=== PATIENT | female | born 1990 ===

== ENCOUNTER 2020-03-15 19:06 | Emergency (ER) | payer SELFPAY ==
[~2020-03-15] VITALS: Ht 157.4 cm; Wt 82.8 kg
[~2020-03-15 19:06] MED LIST: AMOX500C2 PO
--- OUTSIDE RECORDS SUMMARY | 2020-03-15 19:13 | XMS REPORT | Continuity of Care Document ---
Author Organization Unknown Address Unknown Phone Unavailable Allergies Active Description Code Type Severity Reaction Onset Reported/Identified Relationship to Patient Clinical Status Yes No Known Drug Allergies [id number] Drug Allergy Unknown N/A 05/09/2015 Medications There is no data. Problems Date Dx Coded Attending Type Code Diagnosis Diagnosed By 05/09/2015 MARY BETH DIXON DO Ot 784.0 Procedures There is no data. Results There is no data. Encounters ACCT No. Visit Date/Time Discharge Status Pt. Type Provider Facility Loc./Unit Complaint [id number] 01/23/2016 21:16:00 016 04:30:00 DIS Emergency ARI SÁNCHEZ, SHARAD Lewis [facility] [id number] 05/08/2015 21:23:00 015 02:10:00 DIS Emergency MARY BETH DIXON DO [facility]
[2020-03-15 19:27] LABS: BILIRUBIN,URINE NEGATIVE (NEGATIVE); CLARITY,URINE CLEAR; COLOR,URINE YELLOW; GLUCOSE, URINE (UA) NEGATIVE (NEGATIVE); KETONES,URINE NEGATIVE (NEGATIVE); LEUKOCYTE ESTERASE ,URINE NEGATIVE (NEGATIVE); NITRITE,URINE NEGATIVE (NEGATIVE); PROTEIN,URINE NEGATIVE (NEGATIVE)
[2020-03-15 19:38] LABS: BACTERIA,URINE TRACE /HPF; RBC,URINE 0-2 /HPF; WBC,URINE 0-2 /HPF
[2020-03-15] MEDS ORDERED: LACTATED RINGERS 1,000 ML IV ONE (19:40)
[2020-03-15] MEDS ORDERED: fentaNYL INJECTION 100 MCG/2 ML AMP IVP STA ×2 (19:40→20:46)
[2020-03-15] MEDS ORDERED: ONDANSETRON 4 MG/2 ML (SDV) Z0FRAN IVP ONE (19:45)
[2020-03-15 19:53] LABS: BASOPHILS % (AUTO) 0 % (0-10); EOSINOPHILS # (AUTO) 0.1 10^3/uL (0.0-0.3); EOSINOPHILS % (AUTO) 1 % (0-10); HEMATOCRIT 36 % (35-52); HEMOGLOBIN 12.2 G/DL (11.5-16.0); LYMPHOCYTES # (AUTO) 1.8 X 10^3 (1.0-4.0); LYMPHOCYTES % (AUTO) 24 % (12-44); MEAN CORPUSCULAR HEMOGLOBIN 30 PG (25-34); MEAN CORPUSCULAR HGB CONC 34 G/DL (32-36); MEAN CORPUSCULAR VOLUME 89 FL (80-99); MEAN PLATELET VOLUME 9.7 FL (7.4-10.4); MONOCYTES # (AUTO) 0.6 X 10^3 (0.0-1.0); MONOCYTES % (AUTO) 8 % (0-12); NEUTROPHILS % (AUTO) 67 % (42-75); PLATELET COUNT 355 10^3/uL (130-400); RED CELL DISTRIBUTION WIDTH 14.8 % (10.0-14.5); WHITE BLOOD COUNT 7.5 10^3/uL (4.3-11.0)
[2020-03-15 20:13] LABS: ALANINE AMINOTRANSFERASE 20 U/L (0-55); ALBUMIN 4.2 GM/DL (3.2-4.5); ALKALINE PHOSPHATASE 75 U/L (40-136); BILIRUBIN,TOTAL 0.2 MG/DL (0.1-1.0); BUN/CREATININE RATIO 16; CALCIUM 9.3 MG/DL (8.5-10.1); CARBON DIOXIDE 22 MMOL/L (21-32); CREATININE SERUM 0.68 MG/DL (0.60-1.30); GFR ESTIMATED > 60; GLUCOSE 99 MG/DL (70-105); TOTAL PROTEIN 7.7 GM/DL (6.4-8.2)
--- NOTE | 2020-03-15 20:20 | ED GU-Female ---
General Chief Complaint: TERMITE TREATER HELPER Stated Complaint: 4 WKS PREG - CRAMPING / BLEEDING Source: patient Exam Limitations: language barrier History of Present Illness Date Seen by Provider: Mar 15, 2020 Time Seen by Provider: 19:13 Initial Comments Here with report of vaginal bleeding and cramping especially on the left side. Patient states that she had short period on February 04 that lasted 2 days. Normally she goes for 4 days. Went to the clinic yesterday and had an evaluation due to left-sided abdominal pain and found that she was . Started having vaginal bleeding and cramping yesterday. Passed a few clots. States that she has cramping pain to the lower left side and then has vaginal bleeding. Worried about . Does state that she has some burning with urination but otherwise urinating okay. No problems with bowel movements. Denies fevers, chills, upper respiratory symptoms or shortness of breath. This would be her fourth and she has 3 live births. History of present illness and pelvic exam via court interpreter services. Timing/Duration: yesterday, getting worse Severity/Quality: moderate, cramping Location: LLQ Radiation: suprapubic Activities at Onset: none Sexual [place] History: less than 2 months ago Associated Symptoms: abdominal pain; No fever/chills, No lower back pain, No nausea/vomiting Allergies and Home Medications Allergies Coded Allergies: No Known Drug Allergies (Unverified , 05/09/15) Home Medications Amoxicillin 500 Mg Capsule, 500 MG PO TID Prescribed by: JOE BOWEN on 01/23/16 2331 Hydrocodone/Acetaminophen 1 Each Tablet, 1 TAB PO Q4-6HR PRN for pain Prescribed by: CHRISTINA PAREDES on 03/15/20 2216 Patient Home Medication List Home Medication List Reviewed: Yes Review of Systems Review of Systems Constitutional: see HPI; No chills, No fever EENTM: no symptoms reported Respiratory: no symptoms reported Cardiovascular: no symptoms reported Gastrointestinal: see HPI Genitourinary: see HPI LMP: Feb 05, 2020 Musculoskeletal: no symptoms reported All Other Systemes Reviewed Negative Unless Noted: Yes Past Difhzyw-Pmeqbl-Xfgwew Hx Past Med/Social Hx: Reviewed Nursing Past Med/Soc Hx Patient Social History Alcohol Use: Denies Use Recreational Drug Use: No Recent Foreign Travel: No Contact w/Someone Who Travel: No Physical Abuse: No Sexual Abuse: No Mistreated: No Fear: No Seasonal Allergies Seasonal Allergies: No Past Medical History Surgeries: No Respiratory: No Cardiac: No Neurological: Yes Headaches /Migraines Female Reproductive Disorders: Denies Genitourinary: No Gastrointestinal: No Musculoskeletal: No Endocrine: No HEENT: No Cancer: No Psychosocial: No Integumentary: No Blood Disorders: No Family Medical History Reviewed Nursing Family Hx Physical Exam Vital Signs Vital Signs - First Documented 03/15/20 20:32 Temp 36.7 Pulse 76 Resp 20 B/P (MAP) 123/80 (94) Pulse Ox 100 Capillary Refill : Height, Weight, BMI Height: 5'6" Weight: 170lbs. oz. 77.419928mk; 27.44 BMI Method: General Appearance: WD/WN, mild distress HEENT: PERRL/EOMI, pharynx normal Neck: full range of motion, supple Cardiovascular: regular rate, rhythm, no murmur Respiratory: lungs clear, normal breath sounds Gastrointestinal: soft, tenderness (left lower quadrant) Pelvic: discharge (moderate amount of yellow discharge both at the cervix and within the vaginal vault.), tender w/ cervical motion; No vaginal bleeding Back: normal inspection, no CVA tenderness, no vertebral tenderness Extremities: non-tender, normal inspection Neurologic/Psychiatric: alert, oriented x 3 Skin: normal color, warm/dry Progress/Results/Core Measures Suspected Sepsis SIRS Temperature: Pulse: Respiratory Rate: Laboratory Tests 03/15/20 19:42: White Blood Count 7.5 Blood Pressure / Mean: Laboratory Tests 03/15/20 19:42: Creatinine 0.68, Platelet Count 355, Total Bilirubin 0.2 Results/Orders Lab Results Laboratory Tests Test 03/15/20 19:20 03/15/20 19:42 03/15/20 20:32 Range/Units Urine Color YELLOW Urine Clarity CLEAR Urine pH 6.0 5-9 Urine Specific [place] 1.025 H 1.016-1.022 Urine Protein NEGATIVE NEGATIVE Urine Glucose (UA) NEGATIVE NEGATIVE Urine Ketones NEGATIVE NEGATIVE Urine Nitrite NEGATIVE NEGATIVE Urine Bilirubin NEGATIVE NEGATIVE Urine Urobilinogen 1.0 < = 1.0 MG/DL Urine Leukocyte Esterase NEGATIVE NEGATIVE Urine RBC (Auto) NEGATIVE NEGATIVE Urine RBC 0-2 /HPF Urine WBC 0-2 /HPF Urine Squamous Epithelial Cells 10-25 H /HPF Urine Crystals NONE /LPF Urine Bacteria TRACE /HPF Urine Casts NONE /LPF Urine Mucus NEGATIVE /LPF Urine Culture Indicated NO White Blood Count 7.5 4.3-11.0 10^3/uL Red Blood Count 4.11 L 4.35-5.85 10^6/uL Hemoglobin 12.2 11.5-16.0 G/DL Hematocrit 36 35-52 % Mean Corpuscular Volume 89 80-99 FL Mean Corpuscular Hemoglobin 30 25-34 PG Mean Corpuscular Hemoglobin Concent 34 32-36 G/DL Red Cell Distribution Width 14.8 H 10.0-14.5 % Platelet Count 355 130-400 10^3/uL Mean Platelet Volume 9.7 7.4-10.4 FL Neutrophils (%) (Auto) 67 42-75 % Lymphocytes (%) (Auto) 24 12-44 % Monocytes (%) (Auto) 8 0-12 % Eosinophils (%) (Auto) 1 0-10 % Basophils (%) (Auto) 0 0-10 % Neutrophils # (Auto) 5.0 1.8-7.8 X 10^3 Lymphocytes # (Auto) 1.8 1.0-4.0 X 10^3 Monocytes # (Auto) 0.6 0.0-1.0 X 10^3 Eosinophils # (Auto) 0.1 0.0-0.3 10^3/uL Basophils # (Auto) 0.0 0.0-0.1 10^3/uL Sodium Level 138 135-145 MMOL/L Potassium Level 3.7 3.6-5.0 MMOL/L Chloride Level 106 98-107 MMOL/L Carbon Dioxide Level 22 21-32 MMOL/L Anion Gap 10 5-14 MMOL/L Blood Urea Nitrogen 11 7-18 MG/DL Creatinine 0.68 0.60-1.30 MG/DL Estimat Glomerular Filtration Rate > 60 BUN/Creatinine Ratio 16 Glucose Level 99 70-105 MG/DL Calcium Level 9.3 8.5-10.1 MG/DL Corrected Calcium 9.1 8.5-10.1 MG/DL Total Bilirubin 0.2 0.1-1.0 MG/DL Aspartate Amino Transf (AST/SGOT) 17 5-34 U/L Alanine Aminotransferase (ALT/SGPT) 20 0-55 U/L Alkaline Phosphatase 75 40-136 U/L C-Reactive Protein High Sensitivity 1.85 H 0.00-0.50 MG/DL Total Protein 7.7 6.4-8.2 GM/DL Albumin 4.2 3.2-4.5 GM/DL Human Chorionic Gonadotropin, Quant [id number] H <5 MIU/ML My Orders Orders - CHRISTINA PAREDES MD Ua Culture If Indicated (03/15/20 19:12) Urine Bedside (03/15/20 19:12) Cbc With Automated Diff (03/15/20:19) Abo Rh Type (03/15/20 19:19) Comprehensive Metabolic Panel (03/15/20 19:19) Hs C Reactive Protein (03/15/20 19:40) Hcg,Quantitative (03/15/20 19:40) Ed Iv/Invasive Line Start (03/15/20 19:40) Lactated Ringers (Lr 1000 Ml Iv Solution (03/15/20 19:40) Fentanyl Injection (Sublimaze Injection (03/15/20 19:40) Ondansetron Injection (Zofran Injectio (03/15/20 19:45) Wet Prep (03/15/20 20:14) Neisseria Gonorrhea Swab (03/15/20 20:14) Genital Culture (03/15/20 20:14) Chlamydia Trachomatis Swab (03/15/20 20:14) Fentanyl Injection (Sublimaze Injection (03/15/20 20:46) Ceftriaxone For Iv Use (Rocephin For I (03/15/20 21:52) Azithromycin Tablet (Zithromax Tablet) (03/15/20 21:52) Lortab 5mg Po (03/15/20 22:30) Medications Given in ED Current Medications Medications Dose Ordered Sig/Luís Route Start Time Stop Time Status Last Admin Dose Admin Lactated Ringer's 1,000 ml @ 0 mls/hr Q0M ONCE IV 03/15/20 19:40 03/15/20 19:43 DC 03/15/20 19:54 1,000 MLS/HR Ondansetron HCl 4 mg ONCE ONCE IVP 03/15/20 19:45 03/15/20 19:46 DC 03/15/20 19:54 4 MG Vital Signs/I&O 03/15/20 20:32 Temp 36.7 Pulse 76 Resp 20 B/P (MAP) 123/80 (94) Pulse Ox 100 Capillary Refill : Progress Note : Progress Note Seen and evaluated. Plant Pathologist services used for evaluation. UCG confirmed . UA, labs, ABO Rh, LR 1 L bolus, Zofran 4 mg IV and fentanyl 50 g IV ordered. We will do a pelvic exam and cultures also with court interpreter on the line. Monitor patient. 2044: Pelvic exam complete. Moderate amount of vaginal discharge noted. I did ask the patient about that. She states that this is new with this and she has not had that before. Complains of continued left-sided abdominal pain that was a little better briefly after previous dosing of fentanyl. We will repeat that dose now. Exam with court interpreter services via telephone. 2199: Bedside ultrasound done by me which shows what I believe to be intrauterine at 9 and 0/7 weeks by crown-rump length 2. heart tone of 165 with positive movement. I did discuss the case with Dr. Johnson, on-call for the [facility]. Patient did have a walking clinic visit yesterday but has not established care. She does need follow-up. Wet prep results show moderate WBCs without clues, trichomoniasis or yeast. Rocephin 1 g IV and azithromycin 1000 mg by mouth for syringe for STI. Cultures pending. Patient needs outpatient ultrasound in the near future and follow-up. Dr. Johnson will see her in clinic next Thursday. Patient is to call for appointment. I will send a copy of the chart to his office. All of the findings and concerns as well as follow-up were discussed with the patient who agrees with plan. Discharged home with return precautions. Patient verbalize understanding instructions and agreement with plan via court interpreter line. Departure Impression Primary Impression: Cervicitis Additional Impressions: Qualified Codes: Z3A.09 - 9 weeks gestation of Left lower quadrant abdominal pain during Threatened miscarriage in early Disposition: 01 HOME, SELF-CARE Condition: Stable Departure-Patient Inst. Decision time for Depature: 22:11 Referrals: DANA JOHNSON MD NO,LOCAL PHYSICIAN (PCP) Primary Care Physician [facility] Patient Instructions: Acute Abdomen (Belly Pain), Adult (DC), - The Third Month, Sexually-Transmitted Diseases (DC), Threatened Miscarriage (DC) Add. Discharge Instructions: All discharge instructions reviewed with patient and/or family. Voiced understanding. Call [facility] for appointment with Dr. Johnson clinic next Thursday at the clinic on [facility]. He should see you in the afternoon. When you call, let them know the case was discussed with him and he will see you. You were prescribed pain medicine that you may take if needed. Do not take if you're not in significant pain. Drink plenty of fluids. Return for worse pain, increased vaginal bleeding, weakness, breathing problems or other concerns as needed. Scripts Hydrocodone/Acetaminophen (Hydrocodone/Acetaminophen 5 MG/325 MG TAB) 1 Each Tablet 1 TAB PO Q4-6HR PRN for pain MDD 10 TABS for 3 Days, #8 TAB 0 Refills Prov: CHRISTINA PAREDES MD 03/15/20 Copy Copies To 1: DANA JOHNSON MD Copies To 2: SRIDEVI VENCES TIMOTHY D MD Mar 15, 2020 20:20
[2020-03-15 21:10] LABS: CHLORIDE 106 MMOL/L (98-107); POTASSIUM 3.7 MMOL/L (3.6-5.0); SODIUM 138 MMOL/L (135-145)
[2020-03-15] MEDS ORDERED: AZITHROMYCIN 250 MG TAB (ZITHROMAX) PO STA (21:52)
[2020-03-15] MEDS ORDERED: cefTRIAXone FOR IV USE 1,000 MG in WATER (STERILE) FOR INJECTION 10 ML IV STA (21:52)
[2020-03-15] MEDS ORDERED: HYDR-4226 PO (22:15)
[2020-03-15] MEDS ORDERED: HYDROcodone/APAP 5 MG/325 MG (LORTAB) TAB PO ONE (22:30)
[2020-03-15 22:38] VITALS: BP 109/69
== END 2020-03-15 22:38 | disposition home or self-care (01) ==
LOC: EDUNIT# 19:06 → ER 19:08
DX: O23.511 Infections of cervix in pregnancy, first trimester (principal); O20.0 Threatened abortion; Z3A.09 9 weeks gestation of pregnancy
CPT/HCPCS: 36415; 80053; 81000; 84702; 84703; 85025; 86141; 86900; 86901; 87070; 87205; 87210; 87491; 87591

== ENCOUNTER 2021-01-10 17:23 | Emergency (ER) | payer SELFPAY ==
[~2021-01-10] VITALS: Ht 157.4 cm; Wt 80.2 kg
[~2021-01-10 17:23] MED LIST changes: +HYDR-4226 PO
--- NOTE | 2021-01-10 17:41 | ED Abdominal Pain ---
General Chief Complaint: Abdominal/GI Problems Stated Complaint: ABD PAIN Source of Information: Patient Exam Limitations: No Limitations History of Present Illness Date Seen by Provider: Jan 10, 2021 Time Seen by Provider: 17:40 Initial Comments To ER by private vehicle with reports of periumbilical abdominal pain that radiates to the right lower abdomen for 3 days. She ate at 11 AM today and nearly vomited after doing so and had increased pain. She went to [facility] this evening and was referred to the emergency room Timing/Duration: 2-3 Days Severity/Quality: Moderate Location: Generalized Abdomen Radiation: No Radiation Activities at Onset: None Allergies and Home Medications Allergies Coded Allergies: No Known Drug Allergies (Unverified , 05/09/15) Home Medications Amoxicillin 500 Mg Capsule, 500 MG PO TID Prescribed by: JOE BOWEN on 01/23/16 2331 Cefuroxime Axetil 500 Mg Tablet, 500 MG PO BID Prescribed by: JOE BOWEN on 01/10/21 1919 Hydrocodone/Acetaminophen 1 Each Tablet, 1 TAB PO Q4-6HR PRN for pain Prescribed by: CHRISTINA PAREDES on 03/15/20 2216 Patient Home Medication List Home Medication List Reviewed: Yes Review of Systems Review of Systems Constitutional: see HPI EENTM: No Symptoms Reported Respiratory: No Symptoms Reported Cardiovascular: No Symptoms Reported Gastrointestinal: See HPI, Abdominal Pain Genitourinary: No Symptoms Reported Musculoskeletal: no symptoms reported Skin: no symptoms reported Past Gstiihc-Hyanjt-Ejiamt Hx Seasonal Allergies Seasonal Allergies: No Past Medical History Surgeries: No Respiratory: No Cardiac: No Neurological: Yes Headaches /Migraines Female Reproductive Disorders: Denies Genitourinary: No Gastrointestinal: No Musculoskeletal: No Endocrine: No HEENT: No Cancer: No Psychosocial: No Integumentary: No Blood Disorders: No Physical Exam Vital Signs Vital Signs - First Documented 01/10/21 17:25 Temp 36.8 Pulse 85 Resp 20 B/P (MAP) 132/78 (96) Pulse Ox 100 O2 Delivery Room Air Capillary Refill : Height/Weight/BMI Height: 5'6" Weight: 170lbs. oz. 77.386368rd; 33.00 BMI Method: General Appearance: WD/WN, no apparent distress Respiratory: normal breath sounds, no respiratory distress, no accessory muscle use Cardiovascular: regular rate, rhythm, no murmur Gastrointestinal: normal bowel sounds, soft, rebound, tenderness, other (The right upper abdomen is tender to palpation as well and this reproduces her periumbilical pain. This may well be from the cholelithiasis seen on CT.) Extremities: normal range of motion, non-tender Neurologic/Psychiatric: alert, normal mood/affect, oriented x 3 Skin: normal color, warm/dry Progress/Results/Core Measures Results/Orders Lab Results Laboratory Tests Test 01/10/21 17:25 01/10/21 17:38 Range/Units Urine Color YELLOW Urine Clarity CLEAR Urine pH 7.0 5-9 Urine Specific [place] 1.015 L 1.016-1.022 Urine Protein NEGATIVE NEGATIVE Urine Glucose (UA) NEGATIVE NEGATIVE Urine Ketones NEGATIVE NEGATIVE Urine Nitrite NEGATIVE NEGATIVE Urine Bilirubin NEGATIVE NEGATIVE Urine Urobilinogen 0.2 < = 1.0 MG/DL Urine Leukocyte Esterase 2+ H NEGATIVE Urine RBC (Auto) NEGATIVE NEGATIVE Urine RBC NONE /HPF Urine WBC 25-50 H /HPF Urine Squamous Epithelial Cells 25-50 H /HPF Urine Crystals NONE /LPF Urine Bacteria MODERATE H /HPF Urine Casts NONE /LPF Urine Mucus NEGATIVE /LPF Urine Culture Indicated YES White Blood Count 6.7 4.3-11.0 10^3/uL Red Blood Count 4.56 3.80-5.11 10^6/uL Hemoglobin 12.1 11.5-16.0 g/dL Hematocrit 38 35-52 % Mean Corpuscular Volume 84 80-99 fL Mean Corpuscular Hemoglobin 27 25-34 pg Mean Corpuscular Hemoglobin Concent 32 32-36 g/dL Red Cell Distribution Width 15.5 H 10.0-14.5 % Platelet Count 354 130-400 10^3/uL Mean Platelet Volume 10.0 9.0-12.2 fL Immature Granulocyte % (Auto) 0 % Neutrophils (%) (Auto) 68 42-75 % Lymphocytes (%) (Auto) 26 12-44 % Monocytes (%) (Auto) 5 0-12 % Eosinophils (%) (Auto) 1 0-10 % Basophils (%) (Auto) 0 0-10 % Neutrophils # (Auto) 4.5 1.8-7.8 10^3/uL Lymphocytes # (Auto) 1.7 1.0-4.0 10^3/uL Monocytes # (Auto) 0.3 0.0-1.0 10^3/uL Eosinophils # (Auto) 0.1 0.0-0.3 10^3/uL Basophils # (Auto) 0.0 0.0-0.1 10^3/uL Immature Granulocyte # (Auto) 0.0 0.0-0.1 10^3/uL Sodium Level 139 135-145 MMOL/L Potassium Level 4.0 3.6-5.0 MMOL/L Chloride Level 104 98-107 MMOL/L Carbon Dioxide Level 24 21-32 MMOL/L Anion Gap 11 5-14 MMOL/L Blood Urea Nitrogen 13 7-18 MG/DL Creatinine 0.69 0.60-1.30 MG/DL Estimat Glomerular Filtration Rate > 60 BUN/Creatinine Ratio 19 Glucose Level 92 70-105 MG/DL Calcium Level 9.2 8.5-10.1 MG/DL Corrected Calcium 8.5-10.1 MG/DL Total Bilirubin 0.3 0.1-1.0 MG/DL Aspartate Amino Transf (AST/SGOT) 20 5-34 U/L Alanine Aminotransferase (ALT/SGPT) 18 0-55 U/L Alkaline Phosphatase 80 40-136 U/L C-Reactive Protein High Sensitivity 0.49 0.00-0.50 MG/DL Total Protein 8.4 H 6.4-8.2 GM/DL Albumin 4.7 H 3.2-4.5 GM/DL Lipase 40 8-78 U/L Serum Test, Qualitative NEGATIVE NEGATIVE My Orders Orders - JOE BOWEN APRN Ct Abd/Pelv W (Appendicitis) (01/10/21 17:37) Cbc With Automated Diff (01/10/21 17:37) Comprehensive Metabolic Panel (01/10/21 17:37) Ua Culture If Indicated (01/10/21 17:37) Hcg,Qualitative Serum (01/10/21 17:37) Ed Iv/Invasive Line Start (01/10/21 17:37) Ns Iv 1000 Ml (Sodium Chloride 0.9%) (01/10/21 17:45) Ketorolac Injection (Toradol Injection) (01/10/21 17:45) Ondansetron Injection (Zofran Injectio (01/10/21 17:45) Hs C Reactive Protein (01/10/21 17:37) Iohexol Injection (Omnipaque 350 Mg/Ml 1 (01/10/21 17:45) Received Contrast (Hold Metformin- Contr (01/10/21 17:45) Ns (Ivpb) (Sodium Chloride 0.9% Ivpb Bag (01/10/21 17:45) Urine Culture (01/10/21 17:25) Ceftriaxone For Iv Use (Rocephin For I (01/10/21 19:00) Lipase (01/10/21 18:55) Medications Given in ED Current Medications Medications Dose Ordered Sig/Luís Route Start Time Stop Time Status Last Admin Dose Admin Ceftriaxone Sodium 1000 mg/ Sterile Water 10 ml @ 200 mls/hr ONCE ONCE IV 01/10/21 19:00 01/10/21 19:02 DC 01/10/21 19:19 200 MLS/HR Iohexol 100 ml ONCE ONCE IV 01/10/21 17:45 01/10/21 17:46 DC 01/10/21 18:58 100 ML Ketorolac Tromethamine 15 mg ONCE ONCE IVP 01/10/21 17:45 01/10/21 17:46 DC 01/10/21 17:48 15 MG Ondansetron HCl 4 mg ONCE ONCE IVP 01/10/21 17:45 01/10/21 17:46 DC 01/10/21 17:44 4 MG Sodium Chloride 100 ml ONCE ONCE IV 01/10/21 17:45 01/10/21 17:46 DC 01/10/21 18:59 100 ML Vital Signs/I&O 01/10/21 17:25 Temp 36.8 Pulse 85 Resp 20 B/P (MAP) 132/78 (96) Pulse Ox 100 O2 Delivery Room Air Diagnostic Imaging Diagonstic Imaging: CT Comments [facility] REC#: [id number] PT STATUS: REG ER : 1990 PHYSICIAN: JOE BOWEN APRN ADMIT DATE: 01/10/21/ER Draft Date of Exam:01/10/21 CT ABD/PELV W (APPENDICITIS) CLINICAL INDICATION: Patient with abdominal pain and nausea for 3 days. Patient reports pain in the midline that radiates to the lower portion. Patient complains of nausea after eating and feels bloated. EXAM: Axial CT scan of the abdomen and pelvis performed with 100 mL of Omnipaque 350 IV contrast. Sagittal and coronal reformatted images were created. Auto Exposure Controls were utilized during the CT exam to meet ALARA standards for radiation dose reduction. COMPARISON: None. FINDINGS: Visualized lung bases are clear. Bones show no significant abnormality. The liver, spleen, pancreas and adrenal glands are unremarkable. There are multiple gallstones within the gallbladder. The gallbladder is mildly fluid filled. There is no gallbladder wall thickening and no CT evidence of acute cholecystitis. Multiple subcentimeter mesenteric lymph nodes are seen and periaortic lymph nodes seen. The appendix is unremarkable. The intestines are unremarkable. There is a small to moderate amount of stool throughout the colon. Gastric wall thickening is seen which may be related to a contraction. There is no intra-abdominal free air or free fluid. The bladder is fluid-filled and unremarkable. Both kidneys are unremarkable and no hydronephrosis, mass or stone. The uterus and adnexal regions are unremarkable. The extra-abdominal and extra-pelvic soft tissue structures are unremarkable. IMPRESSION: 1: There is no CT evidence of acute abdominal or pelvic process. 2: Cholelithiasis with no CT evidence of cholecystitis. 3: The remainder of this exam shows no other significant abnormality. Dictated on workstation # [id number] Dict: 01/10/211899 Trans: 01/10/211913 [facility] [id number] Interpreted by: SALBADOR CRAVEN MD Electronically signed by: Departure Impression Primary Impression: Urinary tract infection Qualified Codes: N30.00 - Acute cystitis without hematuria Additional Impressions: Constipation Cholelithiasis Disposition: HOME, SELF-CARE Condition: Stable Departure-Patient Inst. Decision time for Depature: 19:18 Referrals: KATEY LUNA BRETT D DO KIDO, TAKAAKI MD NO,LOCAL PHYSICIAN (PCP) Primary Care Physician Patient Instructions: No Instuctions Given Add. Discharge Instructions: 1. Take the antibiotics as directed. Return to ER for any fevers or worsening pain. Follow-up with your doctor next week. CAll one of the surgeons tomorrow to make an appointment to be seen first of next week to address your gallbladder. Scripts Hydrocodone/Acetaminophen (Hydrocodone-Acetamin 5-325 mg) 1 Each Tablet 1 TAB PO Q4H PRN for PAIN-MODERATE (5-7), #10 TAB Prov: JOE BOWEN APRN 01/10/21 Ondansetron (Ondansetron Odt) 4 Mg Tab.rapdis 4 MG PO Q4H PRN for NAUSEA/VOMITING, #10 TAB Prov: JOE BOWEN TAPPING MACHINE OPERATOR 01/10/21 Cefuroxime Axetil (Cefuroxime) 500 Mg Tablet 500 MG PO BID, #10 TAB Prov: JOE BOWEN APRN 01/10/21 Copy Copies To 1: KATEY LUNA DO; DARON FORBES DO; AMBROSE DELGADILLO MD, PETER J APRN Jan 10, 2021 17:41
[2021-01-10 17:45] LABS: BASOPHILS % (AUTO) 0 % (0-10); EOSINOPHILS # (AUTO) 0.1 10^3/uL (0.0-0.3); EOSINOPHILS % (AUTO) 1 % (0-10); HEMATOCRIT 38 % (35-52); HEMOGLOBIN 12.1 g/dL (11.5-16.0); LYMPHOCYTES # (AUTO) 1.7 10^3/uL (1.0-4.0); LYMPHOCYTES % (AUTO) 26 % (12-44); MEAN CORPUSCULAR HEMOGLOBIN 27 pg (25-34); MEAN CORPUSCULAR HGB CONC 32 g/dL (32-36); MEAN CORPUSCULAR VOLUME 84 fL (80-99); MONOCYTES # (AUTO) 0.3 10^3/uL (0.0-1.0); MONOCYTES % (AUTO) 5 % (0-12); NEUTROPHILS # (AUTO) 4.5 10^3/uL (1.8-7.8); NEUTROPHILS % (AUTO) 68 % (42-75); PLATELET COUNT 354 10^3/uL (130-400); WHITE BLOOD COUNT 6.7 10^3/uL (4.3-11.0)
[2021-01-10] MEDS ORDERED: IOHEXOL 350 MG/ML 100 ML (OMNIPAQUE 350) VIAL IV ONE (17:45)
[2021-01-10] MEDS ORDERED: NS IV 1000 ML 1,000 ML IV SCH (17:45)
[2021-01-10] MEDS ORDERED: NS 100 ML (IVPB) BAG IV ONE (17:45)
[2021-01-10] MEDS ORDERED: HOLD METFORMIN - RECEIVED CONTRAST 20 ML VIAL IV SCH (17:45)
[2021-01-10] MEDS ORDERED: ONDANSETRON 4 MG/2 ML (SDV) Z0FRAN IVP ONE (17:45)
[2021-01-10] MEDS ORDERED: KETOROLAC 30 MG/ML VIAL IVP ONE (17:45)
[2021-01-10 17:55] LABS: ALBUMIN 4.7 GM/DL (3.2-4.5)
[2021-01-10 17:56] LABS: CHLORIDE 104 MMOL/L (98-107); SODIUM 139 MMOL/L (135-145)
[2021-01-10 17:57] LABS: CALCIUM 9.2 MG/DL (8.5-10.1)
[2021-01-10 17:58] LABS: GLUCOSE 92 MG/DL (70-105); TOTAL PROTEIN 8.4 GM/DL (6.4-8.2)
[2021-01-10 17:59] LABS: CARBON DIOXIDE 24 MMOL/L (21-32)
[2021-01-10 18:00] LABS: BILIRUBIN,TOTAL 0.3 MG/DL (0.1-1.0)
[2021-01-10 18:01] LABS: ALKALINE PHOSPHATASE 80 U/L (40-136)
[2021-01-10 18:02] LABS: CREATININE SERUM 0.69 MG/DL (0.60-1.30); GFR ESTIMATED > 60
[2021-01-10 18:03] LABS: BUN/CREATININE RATIO 19
[2021-01-10 18:05] LABS: ALANINE AMINOTRANSFERASE 18 U/L (0-55)
[2021-01-10 18:24] LABS: BILIRUBIN,URINE NEGATIVE (NEGATIVE); CLARITY,URINE CLEAR; COLOR,URINE YELLOW; GLUCOSE, URINE (UA) NEGATIVE (NEGATIVE); KETONES,URINE NEGATIVE (NEGATIVE); LEUKOCYTE ESTERASE ,URINE 2+ (NEGATIVE); NITRITE,URINE NEGATIVE (NEGATIVE); PROTEIN,URINE NEGATIVE (NEGATIVE)
[2021-01-10 18:26] LABS: BACTERIA,URINE MODERATE /HPF; SQUAMOUS EPITHELIAL CELL,UR 25-50 /HPF; WBC,URINE 25-50 /HPF
[2021-01-10] MEDS ORDERED: cefTRIAXone FOR IV USE 1,000 MG in WATER (STERILE) FOR INJECTION 10 ML IV ONE (19:00)
--- NOTE | 2021-01-10 19:15 | Diagnostic Imaging Report ---
CLINICAL INDICATION: Patient with abdominal pain and nausea for 3 days. Patient reports pain in the midline that radiates to the lower portion. Patient complains of nausea after eating and feels bloated. EXAM: Axial CT scan of the abdomen and pelvis performed with 100 mL of Omnipaque 350 IV contrast. Sagittal and coronal reformatted images were created. Auto Exposure Controls were utilized during the CT exam to meet ALARA standards for radiation dose reduction. COMPARISON: None. FINDINGS: Visualized lung bases are clear. Bones show no significant abnormality. The liver, spleen, pancreas and adrenal glands are unremarkable. There are multiple gallstones within the gallbladder. The gallbladder is mildly fluid filled. There is no gallbladder wall thickening and no CT evidence of acute cholecystitis. Multiple subcentimeter mesenteric lymph nodes are seen and periaortic lymph nodes seen. The appendix is unremarkable. The intestines are unremarkable. There is a small to moderate amount of stool throughout the colon. Gastric wall thickening is seen which may be related to a contraction. There is no intra-abdominal free air or free fluid. The bladder is fluid-filled and unremarkable. Both kidneys are unremarkable and no hydronephrosis, mass or stone. The uterus and adnexal regions are unremarkable. The extra-abdominal and extra-pelvic soft tissue structures are unremarkable. IMPRESSION: 1: There is no CT evidence of acute abdominal or pelvic process. 2: Cholelithiasis with no CT evidence of cholecystitis. 3: The remainder of this exam shows no other significant abnormality. Dictated by: Dictated on workstation # [id number]
[2021-01-10] MEDS ORDERED: CEFU500T63 PO (19:19)
[2021-01-10] MEDS ORDERED: RX-ONDANSETRON 4 MG ODT (ZOFRAN) PPK #4 PO STA (19:27)
[2021-01-10] MEDS ORDERED: ONDA4TAB11 PO (19:29)
[2021-01-10] MEDS ORDERED: ACHD5005 PO (19:29)
[2021-01-10] MEDS ORDERED: RX-HYDROCODONE/APAP 5/325 MG #4 TAB PK PO PRN (19:30)
[2021-01-10] MEDS ORDERED: fentaNYL INJECTION 100 MCG/2 ML AMP IVP ONE (19:45)
[2021-01-10 19:58] VITALS: BP 113/78
== END 2021-01-10 19:59 | disposition home or self-care (01) ==
LOC: EDUNIT# 17:23 → ER 17:26
DX: N39.0 Urinary tract infection, site not specified (principal); K59.00 Constipation, unspecified; K80.20 Calculus of gallbladder without cholecystitis without obstruction
CPT/HCPCS: 36415; 74177; 80053; 81000; 83690; 84703; 85025; 86141; 87088

== ENCOUNTER 2021-10-11 09:51 | Emergency (ER) | payer SELFPAY ==
[~2021-10-11] VITALS: Ht 157.5 cm; Wt 76.6 kg
[~2021-10-11 09:51] MED LIST changes: +ACHD5005 PO; +CEFU500T63 PO; +ONDA4TAB11 PO
[2021-10-11] MEDS ORDERED: ONDANSETRON 4 MG/2 ML (SDV) Z0FRAN IVP ONE (10:30)
[2021-10-11] MEDS ORDERED: fentaNYL INJ 100 MCG/2 ML AMP IVP ONE (10:30)
[2021-10-11] MEDS ORDERED: NS IV 1000 ML 1,000 ML IV SCH (10:30)
--- NOTE | 2021-10-11 10:30 | ED Headache ---
General Chief Complaint: Head/Cervical Problems Stated Complaint: LIMA Source: patient Exam Limitations: language barrier (Language line was used) History of Present Illness Date Seen by Provider: Oct 11, 2021 Time Seen by Provider: 10:10 Initial Comments Patient presents ER by private conveyance from [facility] with a friend and chief complaint that since Thursday, 5 days ago she has been experiencing the most severe headache of her life left side behind her left eye. She feels her left eye is red. She has had some occasional blurry vision in her eyes. She also has been complaining for the past 5 days a having some progressively worsening weakness along the left side of her body upper and lower extremity. She says sometimes she has to drag her left leg behind her because it will not peanut picker. 4 years ago she had similar episode at [facility] and was diagnosed with a blood spot on her brain on an imaging scan and was sent to follow-up with neurosurgery outpatient but never followed up. She has labs drawn that were reviewed by nurse practitioner Calvin at [facility] with this provider demonstrating hyperlipidemia otherwise unremarkable. She had some urinary symptoms starting about a week ago. She had a urinalysis on Thursday when she went in originally to the clinic for her headache and was told the urinalysis was okay. No fevers chills cough shortness of air. No COVID-19 vaccination. No sick contacts. Allergies and Home Medications Allergies Coded Allergies: No Known Drug Allergies (Unverified , 05/09/15) Patient Home Medication List Home Medication List Reviewed: Yes Amoxicillin (Amoxicillin) 500 Mg Capsule, 500 MG PO TID Prescribed by: JOE BOWEN on 01/23/16 2331 Cefuroxime Axetil (Cefuroxime) 500 Mg Tablet, 500 MG PO BID Prescribed by: JOE BOWEN on 01/10/211918 Hydrocodone/Acetaminophen (Hydrocodone/Acetaminophen 5 MG/325 MG TAB) 1 Each Tablet, 1 TAB PO Q4-6HR PRN for pain Prescribed by: CHRISTINA PAREDES on 03/15/202215 Hydrocodone/Acetaminophen (Hydrocodone-Acetamin 5-325 mg) 1 Each Tablet, 1 TAB PO Q4H PRN for PAIN-MODERATE (5-7) Prescribed by: JOE BOWEN on 01/10/211928 Ondansetron (Ondansetron Odt) 4 Mg Tab.rapdis, 4 MG PO Q4H PRN for NAUSEA/VOMITING Prescribed by: JOE BOWEN on 01/10/211928 Review of Systems Review of Systems Constitutional: No chills, No malaise Eyes: See HPI; Denies Blindness; Blurred Vision; Denies Drainage Ears, Nose, Mouth, Throat: denies ear pain, denies ear discharge Respiratory: No cough, No short of breath Cardiovascular: No chest pain, No edema Gastrointestinal: No abdominal pain; nausea; No vomiting Genitourinary: No discharge, No dysuria Musculoskeletal: No back pain, No joint pain Psychiatric/Neurological: Denies Anxiety, Denies Depressed All Other Systems Reviewed Negative Unless Noted: Yes Past Wcadasx-Iyskrj-Hvbxid Hx Patient Social History Tobacco Use?: No Use of E-Cig and/or Vaping dev: No Substance use?: No Alcohol Use?: No Seasonal Allergies Seasonal Allergies: No Past Medical History Surgeries: No Respiratory: No Cardiac: No Neurological: Yes Headaches /Migraines Female Reproductive Disorders: Denies Genitourinary: No Gastrointestinal: No Musculoskeletal: No Endocrine: No HEENT: No Cancer: No Psychosocial: No Integumentary: No Blood Disorders: No Physical Exam Vital Signs Vital Signs - First Documented 10/11/21 10:08 Temp 36.8 Pulse 68 Resp 16 B/P (MAP) 131/83 (99) Pulse Ox 96 O2 Delivery Room Air Capillary Refill : Height, Weight, BMI Height: 5'6" Weight: 170lbs. oz. 77.518301it; 32.00 BMI Method: General Appearance: WD/WN, mild distress HEENT: PERRL/EOMI (4mm sym), normal ENT inspection, TMs normal, pharynx normal Neck: non-tender, full range of motion, supple, normal inspection Cardiovascular: normal peripheral pulses, regular rate, rhythm, no edema Respiratory: lungs clear, normal breath sounds, no respiratory distress, no accessory muscle use Psychiatric: alert, oriented x 3 Crainal Nerves: normal hearing, normal speech, PERRL Motor/Sensory: no sensory deficit, no pronator drift, weak motor strength LLE (4/5) Skin: normal color, warm/dry Procedures/Interventions Discussed Risk,Benefits: Yes Patient Consents: Yes Position: Lying (Language line was used), L4-5, Right Sterile Technique: Yes Opening Pressure: 22 cmH20 Fluid Color: pink Size of Disposal Tray Used: Adult Bloody tap. Patient tolerated procedure well. 5 cc 1% lidocaine were used Progress/Results/Core Measures Results/Orders Lab Results Laboratory Tests Test 10/11/21 10:24 10/11/21 10:29 10/11/21 10:33 10/11/21 12:12 Range/Units White Blood Count 5.5 4.3-11.0 10^3/uL Red Blood Count 4.37 3.80-5.11 10^6/uL Hemoglobin 12.5 11.5-16.0 g/dL Hematocrit 38 35-52 % Mean Corpuscular Volume 86 80-99 fL Mean Corpuscular Hemoglobin 29 25-34 pg Mean Corpuscular Hemoglobin Concent 33 32-36 g/dL Red Cell Distribution Width 17.0 H 10.0-14.5 % Platelet Count 314 130-400 10^3/uL Mean Platelet Volume 9.9 9.0-12.2 fL Immature Granulocyte % (Auto) 0 % Neutrophils (%) (Auto) 60 42-75 % Lymphocytes (%) (Auto) 34 12-44 % Monocytes (%) (Auto) 5 0-12 % Eosinophils (%) (Auto) 1 0-10 % Basophils (%) (Auto) 0 0-10 % Neutrophils # (Auto) 3.3 1.8-7.8 10^3/uL Lymphocytes # (Auto) 1.9 1.0-4.0 10^3/uL Monocytes # (Auto) 0.3 0.0-1.0 10^3/uL Eosinophils # (Auto) 0.1 0.0-0.3 10^3/uL Basophils # (Auto) 0.0 0.0-0.1 10^3/uL Immature Granulocyte # (Auto) 0.0 0.0-0.1 10^3/uL Sodium Level 140 135-145 MMOL/L Potassium Level 3.7 3.6-5.0 MMOL/L Chloride Level 103 98-107 MMOL/L Carbon Dioxide Level 24 21-32 MMOL/L Anion Gap 13 5-14 MMOL/L Blood Urea Nitrogen 10 7-18 MG/DL Creatinine 0.73 0.60-1.30 MG/DL Estimat Glomerular Filtration Rate 92 BUN/Creatinine Ratio 14 Glucose Level 97 70-105 MG/DL Calcium Level 9.5 8.5-10.1 MG/DL Corrected Calcium 8.5-10.1 MG/DL Total Bilirubin 0.4 0.1-1.0 MG/DL Aspartate Amino Transf (AST/SGOT) 20 5-34 U/L Alanine Aminotransferase (ALT/SGPT) 18 0-55 U/L Alkaline Phosphatase 62 40-136 U/L C-Reactive Protein High Sensitivity 0.24 0.00-0.50 MG/DL Total Protein 7.7 6.4-8.2 GM/DL Albumin 4.6 H 3.2-4.5 GM/DL Procalcitonin 0.01 <0.10 NG/ML Prothrombin Time 13.4 12.2-14.7 SEC INR Comment 1.0 0.8-1.4 Activated Partial Thromboplast Time 31 24-35 SEC Urine Color YELLOW Urine Clarity CLEAR Urine pH 7.5 5-9 Urine Specific [place] 1.015 L 1.016-1.022 Urine Protein NEGATIVE NEGATIVE Urine Glucose (UA) NEGATIVE NEGATIVE Urine Ketones NEGATIVE NEGATIVE Urine Nitrite NEGATIVE NEGATIVE Urine Bilirubin NEGATIVE NEGATIVE Urine Urobilinogen 0.2 < = 1.0 MG/DL Urine Leukocyte Esterase NEGATIVE NEGATIVE Urine RBC (Auto) NEGATIVE NEGATIVE Urine RBC NONE /HPF Urine WBC NONE /HPF Urine Squamous Epithelial Cells 0-2 /HPF Urine Crystals NONE /LPF Urine Bacteria NEGATIVE /HPF Urine Casts NONE /LPF Urine Mucus NEGATIVE /LPF Urine Culture Indicated NO Influenza Type A (RT-PCR) Not Detected Not Detecte Influenza Type B (RT-PCR) Not Detected Not Detecte SARS-CoV-2 RNA (RT-PCR) Not Detected Not Detecte Test 10/11/21 12:35 Range/Units CSF Tube Number 4 CSF Appearance CLEAR CSF Color COLORLESS CSF WBC 1.1 0-5 CELLS CSF RBC 110 H 0-0 CELLS CSF Lymphocytes % CSF Mononuclear WBCs % CSF Polynuclear WBCs % CSF Glucose 54 50-80 MG/DL CSF Total Protein 36 15-40 MG/DL Micro Results Microbiology 10/11/21 Gram Stain - Final, Resulted 10/11/21 CSF Culture, Resulted Pending My Orders Orders - AWILDA EDWARDS Ua Culture If Indicated (10/11/21 09:55) Urine Bedside (10/11/21 09:55) Ed Iv/Invasive Line Start (10/11/21 10:22) Ns Iv 1000 Ml (Sodium Chloride 0.9%) (10/11/21 10:30) Ct Angio Head/Neck (10/11/21 10:22) Cbc With Automated Diff (10/11/21 10:22) Comprehensive Metabolic Panel (10/11/21 10:22) Hs C Reactive Protein (10/11/21 10:22) Procalcitonin (Pct) (10/11/21 10:22) Ondansetron Injection (Zofran Injectio (10/11/21 10:30) Fentanyl Inj (Sublimaze Injection) (10/11/21 10:30) Iohexol Injection (Omnipaque 350 Mg/Ml 1 (10/11/21 10:45) Received Contrast (Hold Metformin- Contr (10/11/21 10:45) Ns (Ivpb) (Sodium Chloride 0.9% Ivpb Bag (10/11/21 10:45) Protime With Inr (10/11/21 11:23) Partial Thromboplastin Time (10/11/21 11:23) Csf Cell Count (10/11/21 12:11) Csf Glucose (10/11/21 12:11) Csf Total Protein (10/11/21 12:11) Csf Culture (10/11/21 12:11) Hsv 1&2 Pcr (Csf/Fluid) (10/11/21 12:11) Covid 19 Inhouse Test (10/11/21 12:11) Influenza A And B By Pcr (10/11/21 12:11) Morphine Injection (Morphine Injection (10/11/21 12:18) Morphine Injection (Morphine Injection (10/11/21 12:18) Medications Given in ED Current Medications Medications Dose Ordered Sig/Luís Route Start Time Stop Time Status Last Admin Dose Admin Fentanyl Citrate 50 mcg ONCE ONCE IVP 10/11/21 10:30 10/11/21 10:31 DC 10/11/21 10:37 50 MCG Iohexol 100 ml ONCE ONCE IV 10/11/21 10:45 10/11/21 10:46 DC 10/11/21 10:59 75 ML Ondansetron HCl 4 mg ONCE ONCE IVP 10/11/21 10:30 10/11/21 10:31 DC 10/11/21 10:37 4 MG Sodium Chloride 100 ml ONCE ONCE IV 10/11/21 10:45 10/11/21 10:46 DC 10/11/21 10:59 80 ML Vital Signs/I&O 10/11/21 10:08 Temp 36.8 Pulse 68 Resp 16 B/P (MAP) 131/83 (99) Pulse Ox 96 O2 Delivery Room Air Progress Progress Note #1: Time: 10:34 Progress Note Some concern for a subarachnoid hemorrhage given her neurologic deficits and headache. We will get a CT angiogram since this is been going on for the past 5 days and is subacute. This will allow us to look for bleeds on the precontrast phase as well as evaluate the vessels of her head neck. Fentanyl and Zofran for her headache and nausea. A liter of fluids to help flush her kidneys. Her initial blood pressure is normal 130 systolic. Progress Note #2: Time: 12:40 Progress Note We discussed the findings and it has been 5 days since the headache started and a CT might have found a subarachnoid hemorrhage but because she is having the headache and weakness a lumbar puncture would still be indicated looking for significant hemorrhage. Using the language line the risks benefits and alternatives were explained the patient. She consented signed a consent and we positioned her on her right side and lateral recumbent. We able to make easy access between her L4-L5 space however we had a apparently bloody tap which quickly cleared by the second tube was grossly clear. We went ahead and added HSV PCR as well as cultures, cell count, protein and glucose. Progress Note #3: Time: 14:20 Progress Note Fourth tube had 110 red blood cells which excludes the likelihood of a subarachnoid hemorrhage. Certainly a viral syndrome, less likely meningitis is possible. Will follow cultures and PCR results outpatient. We will have her follow-up next week with primary care. Although 5 days out is a little late to start antivirals the risk is sufficiently low that the benefit could be there. We will put her on acyclovir five times a day for a week. Because of the focused neurologic deficits we added a oligoclonal bands to the study. I can follow-up this, the PCR and cultures in the clinic next week. Return precautions were given. Diagnostic Imaging Diagonstic Imaging: CT (Angiogram) Plain Films/CT/US/NM/MRI: head (Head and neck) Comments [facility]. [place], [place] NAME: SANJAY PEOPLES MED REC#: [id number] PT STATUS: REG ER : 1990 PHYSICIAN: AWILDA EDWARDS MD ADMIT DATE: 10/11/21/ER Draft Date of Exam:10/11/21 CT ANGIO HEAD/NECK Clinical indications: Patient with headaches for 5 days with blurry vision and left side 4-5 motor issues. Patient has similar symptoms 4 years ago and was diagnosed with blood spot on the brain. Exams: 1: Head CT with and without IV contrast. Auto Exposure Controls were utilized during the CT exam to meet ALARA standards for radiation dose reduction. 2: CT angiogram of the head and neck performed with 75 cc of Omnipaque 350 IV contrast. Sagittal and coronal MIP reformations were created for better visualization of vascular anatomy. Comparison: Head CT without contrast dated 05/09/2015. Findings: Head CT: There is no evidence of acute cerebral infarct, intracranial hemorrhage, or gross mass effect. There is no abnormal IV contrast enhancement. The brain parenchymal volume appears appropriate for patient's age. There is normal holman-white matter distinction. There is no significant midline shift or herniation. There is no evidence of hydrocephalus. The basal cisterns are unremarkable. The skull, extracranial soft tissue, and orbits are unremarkable. The paranasal sinuses are unremarkable. Temporal bones show no significant abnormality. CT Angiogram: There is dense contrast bolus seen within the left subclavian vein, innominate vein and superior vena cava which causes streak artifact obscuring portions of aortic arch and proximal great vessels. 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 The bilateral subclavian arteries and brachiocephalic artery are patent. The right common carotid artery, cervical right ICA and right ECA are patent. The left common carotid artery, cervical left ICA and left ECA are patent. The bilateral cervical vertebral arteries are patent. The intradural bilateral vertebral arteries, basilar artery, superior cerebellar arteries, and bilateral INDUSTRIAL PSYCHOLOGIST are patent. The petrous, cavernous, and supraclinoid ICA are patent. The bilateral ACAs and distal branches and bilateral MCAs and distal branches are patent. Dural venous sinuses are patent. The neck soft tissue structures show no significant abnormality. There is atelectasis involving the visualized upper lung jaime. IMPRESSION: 1: Unremarkable CT scan of the brain. 2: Unremarkable CT angiogram of the [place] and neck. Dictated on workstation # [id number] Dict: 10/11/21 1106 Trans: 10/11/21 1141 [facility] [id number] Interpreted by: SALBADOR CRAVEN MD Electronically signed by: Reviewed: Reviewed by Me Departure Impression Primary Impression: Headache Qualified Codes: R51.9 - Headache, unspecified Disposition: 01 HOME, SELF-CARE Condition: Stable Departure-Patient Inst. Decision time for Depature: 14:21 Referrals: [facility] (PCP/Family) Primary Care Physician Patient Instructions: Headache, Adult (DC), Viral Meningitis, Adult (DC) Add. Discharge Instructions: Were not entirely certain the source of your severe headache however a virus may be the origin. We will put you on antivirals and gave you some pain medicines. Tylenol 1000 mg every 8 hours as necessary for pain. Ibuprofen 800 mg every 8 hours or naproxen 2 tablets twice a day as necessary for headache. Hydrocodone 1 tablet every 6 hours as necessary for severe breakthrough pain. Zofran 1 tablet every 6 hours under the tongue as necessary for nausea and or vomiting. Follow-up next week with your primary care doctor for recheck to make sure your symptoms are improving. Return to ER for worsening symptoms or intractable vomiting or other emerge concerns. All discharge instructions reviewed with patient and/or family. Voiced understanding. Scripts Acyclovir (Acyclovir) 800 Mg Tablet 800 MG PO 5XD for 7 Days, #35 TAB 0 Refills Prov: AWILDA EDWARDS 10/11/21 Ondansetron (Ondansetron Odt) 4 Mg Tab.rapdis 4 MG PO Q6H PRN for NAUSEA/VOMITING, #12 TAB 0 Refills Prov: AWILDA EDWARDS 10/11/21 Hydrocodone/Acetaminophen (Hydrocodone-Acetamin 5-325 mg) 1 Each Tablet 1 TAB PO Q6H PRN for PAIN-MODERATE (5-7), #14 TAB 0 Refills Prov: AWILDA EDWARDS 10/11/21 Copy Copies To 1: SRIDEVI VENCES TITUS J Oct 11, 2021 10:30
[2021-10-11 10:32] LABS: BASOPHILS % (AUTO) 0 % (0-10); EOSINOPHILS # (AUTO) 0.1 10^3/uL (0.0-0.3); EOSINOPHILS % (AUTO) 1 % (0-10); HEMATOCRIT 38 % (35-52); HEMOGLOBIN 12.5 g/dL (11.5-16.0); LYMPHOCYTES # (AUTO) 1.9 10^3/uL (1.0-4.0); LYMPHOCYTES % (AUTO) 34 % (12-44); MEAN CORPUSCULAR HEMOGLOBIN 29 pg (25-34); MEAN CORPUSCULAR HGB CONC 33 g/dL (32-36); MEAN CORPUSCULAR VOLUME 86 fL (80-99); MEAN PLATELET VOLUME 9.9 fL (9.0-12.2); MONOCYTES # (AUTO) 0.3 10^3/uL (0.0-1.0); MONOCYTES % (AUTO) 5 % (0-12); NEUTROPHILS # (AUTO) 3.3 10^3/uL (1.8-7.8); NEUTROPHILS % (AUTO) 60 % (42-75); PLATELET COUNT 314 10^3/uL (130-400); WHITE BLOOD COUNT 5.5 10^3/uL (4.3-11.0)
[2021-10-11 10:42] LABS: BILIRUBIN,URINE NEGATIVE (NEGATIVE); CLARITY,URINE CLEAR; COLOR,URINE YELLOW; GLUCOSE, URINE (UA) NEGATIVE (NEGATIVE); KETONES,URINE NEGATIVE (NEGATIVE); LEUKOCYTE ESTERASE ,URINE NEGATIVE (NEGATIVE); NITRITE,URINE NEGATIVE (NEGATIVE); PH,URINE 7.5 (5-9); PROTEIN,URINE NEGATIVE (NEGATIVE)
[2021-10-11 10:45] LABS: ALBUMIN 4.6 GM/DL (3.2-4.5); CHLORIDE 103 MMOL/L (98-107); POTASSIUM 3.7 MMOL/L (3.6-5.0); SODIUM 140 MMOL/L (135-145)
[2021-10-11] MEDS ORDERED: IOHEXOL 350 MG/ML 100 ML (OMNIPAQUE 350) VIAL IV ONE (10:45)
[2021-10-11] MEDS ORDERED: HOLD METFORMIN - RECEIVED CONTRAST 20 ML VIAL IV SCH (10:45)
[2021-10-11] MEDS ORDERED: NS 100 ML (IVPB) BAG IV ONE (10:45)
[2021-10-11 10:46] LABS: CALCIUM 9.5 MG/DL (8.5-10.1)
[2021-10-11 10:48] LABS: GLUCOSE 97 MG/DL (70-105); TOTAL PROTEIN 7.7 GM/DL (6.4-8.2)
[2021-10-11 10:49] LABS: BILIRUBIN,TOTAL 0.4 MG/DL (0.1-1.0); CARBON DIOXIDE 24 MMOL/L (21-32)
[2021-10-11 10:51] LABS: ALKALINE PHOSPHATASE 62 U/L (40-136); CREATININE SERUM 0.73 MG/DL (0.60-1.30); GFR ESTIMATED 92
[2021-10-11 10:52] LABS: BACTERIA,URINE NEGATIVE /HPF; SQUAMOUS EPITHELIAL CELL,UR 0-2 /HPF
[2021-10-11 10:52] LABS: BUN/CREATININE RATIO 14
[2021-10-11 10:54] LABS: ALANINE AMINOTRANSFERASE 18 U/L (0-55)
[2021-10-11 11:38] LABS: PROTHROMBIN TIME PATIENT 13.4 SEC (12.2-14.7)
--- NOTE | 2021-10-11 11:41 | Diagnostic Imaging Report ---
Clinical indications: Patient with headaches for 5 days with blurry vision and left side 4-5 motor issues. Patient has similar symptoms 4 years ago and was diagnosed with blood spot on the brain. Exams: 1: Head CT with and without IV contrast. Auto Exposure Controls were utilized during the CT exam to meet ALARA standards for radiation dose reduction. 2: CT angiogram of the head and neck performed with 75 cc of Omnipaque 350 IV contrast. Sagittal and coronal MIP reformations were created for better visualization of vascular anatomy. Comparison: Head CT without contrast dated 05/09/2015. Findings: Head CT: There is no evidence of acute cerebral infarct, intracranial hemorrhage, or gross mass effect. There is no abnormal IV contrast enhancement. The brain parenchymal volume appears appropriate for patient's age. There is normal holman-white matter distinction. There is no significant midline shift or herniation. There is no evidence of hydrocephalus. The basal cisterns are unremarkable. The skull, extracranial soft tissue, and orbits are unremarkable. The paranasal sinuses are unremarkable. Temporal bones show no significant abnormality. CT Angiogram: There is dense contrast bolus seen within the left subclavian vein, innominate vein and superior vena cava which causes streak artifact obscuring portions of aortic arch and proximal great vessels. 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 The bilateral subclavian arteries and brachiocephalic artery are patent. The right common carotid artery, cervical right ICA and right ECA are patent. The left common carotid artery, cervical left ICA and left ECA are patent. The bilateral cervical vertebral arteries are patent. The intradural bilateral vertebral arteries, basilar artery, superior cerebellar arteries, and bilateral RESOURCE MANAGER are patent. The petrous, cavernous, and supraclinoid ICA are patent. The bilateral ACAs and distal branches and bilateral MCAs and distal branches are patent. Dural venous sinuses are patent. The neck soft tissue structures show no significant abnormality. There is atelectasis involving the visualized upper lung jaime. IMPRESSION: 1: Unremarkable CT scan of the brain. 2: Unremarkable CT angiogram of the [place] and neck. Dictated by: Dictated on workstation # [id number]
[2021-10-11] MEDS ORDERED: morphine INJ 10 MG/ML 1ML (SYR OR VIAL) ONE (12:18)
[2021-10-11] MEDS ORDERED: morphine INJ 10 MG/ML 1ML (SYR OR VIAL) IVP STA (12:18)
[2021-10-11 13:16] LABS: CSF GLUCOSE 54 MG/DL (50-80)
[2021-10-11 13:19] LABS: APPEARANCE,CSF CLEAR; COLOR,CSF COLORLESS; CSF TUBE NUMBER 4; RED BLOOD CELL,CSF 110 CELLS (0-0); WHITE BLOOD CELL,CSF 1.1 CELLS (0-5)
[2021-10-11 13:22] LABS: CSF TOTAL PROTEIN 36 MG/DL (15-40)
[2021-10-11] MEDS ORDERED: ACYC-112 PO (14:39)
[2021-10-11] MEDS ORDERED: ACHD5005 PO (14:39)
[2021-10-11] MEDS ORDERED: ONDA4TAB11 PO (14:39)
[2021-10-11 15:02] VITALS: BP 123/81
[2021-10-16] MEDS ORDERED: CYCL10TA9 PO (11:09)
== END 2021-10-11 15:02 | disposition home or self-care (01) ==
LOC: EDUNIT# 09:51 → ER 09:53
DX: R51.9 Headache, unspecified (principal); Z20.822 Contact with and (suspected) exposure to COVID-19
CPT/HCPCS: 36415; 62270; 70496; 70498; 80053; 81000; 82945; 83916; 84145; 84157; 84703; 85025; 85610; 85730; 86141; 87070; 87205; 87529; 87636; 89051

== ENCOUNTER 2021-10-14 12:56 | Observation (INO) | payer SELFPAY ==
[~2021-10-14] VITALS: Ht 162 cm; Wt 68.0 kg
[~2021-10-14 12:56] MED LIST changes: +ACYC-112 PO
[2021-10-14] MEDS ORDERED: ACET/BUTAL/CAFF (FIORICET) TAB PO STA (13:19)
--- NOTE | 2021-10-14 13:29 | ED Headache ---
General Chief Complaint: Head/Cervical Problems Stated Complaint: NECK AND ROSALINDA PAIN Nursing Triage Note: ARRIVED VIA AMB TO ROOM 05 WITH COMPLAINTS OF ONGOING HEADACHE AND NECK/BACK/CHEST PAIN. WAS SEEN HERE ON THURSDAY. Source: patient, family Exam Limitations: no limitations, language barrier (Language line was used) History of Present Illness Date Seen by Provider: Oct 14, 2021 Time Seen by Provider: 13:11 Initial Comments Patient presents the ER by private conveyance from home with family and chief complaint that she is having severe headache since Thursday, 2 days ago. She was here Thursday for work-up of left frontal headache behind the eye with nausea vomiting and no fever. She was not having any nuchal rigidity at that time but she is endorsing stiffness in her neck today. She was worked up for a subarac hnoid hemorrhage because she has a history of reported subarachnoid hemorrhage years ago. She states that headache was getting better until the following day on Thursday when it started to get worse. She took the pain medicine, hydrocodone provided and it took the pain down but as soon as the pain medicine wore off in a couple hours the pain was back 10 out of 10. She is not having any weakness numbness inability to walk. The pain is worse when she sits up or stands up. She is also having pain in her low back. No dysuria cough shortness of air. She is having nausea however. Allergies and Home Medications Allergies Coded Allergies: No Known Drug Allergies (Unverified , 05/09/15) Patient Home Medication List Home Medication List Reviewed: Yes Cyclobenzaprine HCl (Cyclobenzaprine HCl) 10 Mg Tablet, 10 MG PO TID PRN for MUSCLE SPASMS Prescribed by: KARO MAGANA on 10/16/21 1109 Ondansetron (Ondansetron Odt) 4 Mg Tab.rapdis, 4 MG PO Q4H PRN for NAUSEA-1ST LINE Prescribed by: KARO MAGANA on 10/16/21 1109 Discontinued Medications Acyclovir (Acyclovir) 800 Mg Tablet, 800 MG PO 5XD Discontinued Reason: Duplicate Order Prescribed by: AWILDA EDWARDS on 10/11/21 1439 Last Action: Discontinued Amoxicillin (Amoxicillin) 500 Mg Capsule, 500 MG PO TID Discontinued Reason: Duplicate Order Prescribed by: JOE BOWEN on 01/23/16 2331 Last Action: Discontinued Cefuroxime Axetil (Cefuroxime) 500 Mg Tablet, 500 MG PO BID Discontinued Reason: Duplicate Order Prescribed by: JOE BOWEN on 01/10/211918 Last Action: Discontinued Hydrocodone/Acetaminophen (Hydrocodone/Acetaminophen 5 MG/325 MG TAB) 1 Each Tab let, 1 TAB PO Q4-6HR PRN for pain Discontinued Reason: Duplicate Order Prescribed by: CHRISTINA PAREDES on 03/15/20 221 Last Action: Discontinued Hydrocodone/Acetaminophen (Hydrocodone-Acetamin 5-325 mg) 1 Each Tablet, 1 TAB PO Q4H PRN for PAIN-MODERATE (5-7) Discontinued Reason: Duplicate Order Prescribed by: JOE BOWEN on 01/10/211928 Last Action: Discontinued Hydrocodone/Acetaminophen (Hydrocodone-Acetamin 5-325 mg) 1 Each Tablet, 1 TAB PO Q6H PRN for PAIN-MODERATE (5-7) Discontinued Reason: Duplicate Order Prescribed by: AWILDA EDWARDS on 10/11/21 1440 Last Action: Discontinued Hydrocodone/Acetaminophen (Hydrocodone-Acetamin 5-325 mg) 1 Each Tablet, 1-2 TAB PO Q4H PRN for PAIN-MODERATE (5-7) Discontinued Reason: Duplicate Order Prescribed by: AWILDA EDWARDS on 10/14/21 1650 Last Action: Discontinued Ondansetron (Ondansetron Odt) 4 Mg Tab.rapdis, 4 MG PO Q4H PRN for NAUSEA/VOMITING Discontinued Reason: Duplicate Order Prescribed by: JOE BOWEN on 01/10/211928 Last Action: Discontinued Ondansetron (Ondansetron Odt) 4 Mg Tab.rapdis, 4 MG PO Q6H PRN for NA USEA/VOMITING Discontinued Reason: Duplicate Order Prescribed by: AWILDA EDWARDS on 10/11/21 1439 Last Action: Discontinued Ondansetron (Ondansetron Odt) 4 Mg Tab.rapdis, 4 MG PO Q6H PRN for NAUSEA/VOMITING Discontinued Reason: Duplicate Order Prescribed by: AWILDA EDWARDS on 10/14/21 1649 Last Action: Discontinued Review of Systems Review of Systems Constitutional: No chills, No fever Eyes: Denies Blindness, Denies Blurred Vision Ears, Nose, Mouth, Throat: denies ear pain, denies ear discharge Respiratory: No cough, No short of breath Cardiovascular: No edema, No palpitations Gastrointestinal: No abdominal pain, No constipation, No diarrhea; nausea, vomiting Genitourinary: No dysuria, No pain : No Musculoskeletal: No muscle pain; muscle stiffness, neck pain Skin: No change in color, No lesions Psychiatric/Neurological: Headache; Denies Numbness, Denies Paresthesia All Other Systems Reviewed Negative Unless Noted: Yes Past Nnvyjwx-Ymtsji-Pydabu Hx Patient Social History Tobacco Use?: No Smoking Status: Never a Smoker Use of E-Cig and/or Vaping dev: No Substance use?: No Alcohol Use?: No Immunizations Up To Date Second COVID19 Vaccination Kenny: UNKNOWN COVID19 Vaccine Home Assessment Nurse: UNKOWN Seasonal Allergies Seasonal Allergies: No Past Medical History Surgeries: No Respiratory: No Cardiac: No Neurological: Yes Headaches /Migraines Female Reproductive Disorders: Denies Genitourinary: No Gastrointestinal: No Musculoskeletal: No Endocrine: No HEENT: No Cancer: No Psychosocial: No Integumentary: No Blood Disorders: No Physical Exam Vital Signs Vital Signs - First Documented 10/14/21 13:05 Temp 35.3 Pulse 83 Resp 16 B/P (MAP) 122/90 (101) Pulse Ox 100 O2 Delivery Room Air Capillary Refill : Less Than 3 Seconds Height, Weight, BMI Height: 5'6" Weight: 170lbs. oz. [id number]; 25.00 BMI Method: General Appearance: moderate distress, obese HEENT: PERRL/EOMI; No TMs normal (Clear mucoid effusion bilateral without loss of landmarks); pharynx normal Neck: full range of motion, normal inspection Cardiovascular: normal peripheral pulses, regular rate, rhythm Respiratory: lungs clear, normal breath sounds, no respiratory distress, no accessory muscle use Gastrointestinal: normal bowel sounds, soft, tenderness (Mild, diffuse tenderness) Extremities: normal range of motion, non-tender, normal capillary refill Psychiatric: alert, oriented x 3 Crainal Nerves: normal hearing, normal speech, PERRL Coordination/Gait: normal gait Motor/Sensory: no motor deficit, no sensory deficit Skin: normal color, warm/dry Progress/Results/Core Measures Results/Orders Lab Results Laboratory Tests Test 10/14/21 13:10 10/14/21 13:39 Range/Units White Blood Count 8.1 4.3-11.0 10^3/uL Red Blood Count 4.99 3.80-5.11 10^6/uL Hemoglobin 14.1 11.5-16.0 g/dL Hematocrit 43 35-52 % Mean Corpuscular Volume 85 80-99 fL Mean Corpuscular Hemoglobin 28 25-34 pg Mean Corpuscular Hemoglobin Concent 33 32-36 g/dL Red Cell Distribution Width 16.7 H 10.0-14.5 % Platelet Count 372 130-400 10^3/uL Mean Platelet Volume 9.8 9.0-12.2 fL Immature Granulocyte % (Auto) 0 % Neutrophils (%) (Auto) 68 42-75 % Lymphocytes (%) (Auto) 27 12-44 % Monocytes (%) (Auto) 4 0-12 % Eosinophils (%) (Auto) 1 0-10 % Basophils (%) (Auto) 0 0-10 % Neutrophils # (Auto) 5.5 1.8-7.8 10^3/uL Lymphocytes # (Auto) 2.2 1.0-4.0 10^3/uL Monocytes # (Auto) 0.4 0.0-1.0 10^3/uL Eosinophils # (Auto) 0.0 0.0-0.3 10^3/uL Basophils # (Auto) 0.0 0.0-0.1 10^3/uL Immature Granulocyte # (Auto) 0.0 0.0-0.1 10^3/uL Erythrocyte Sedimentation Rate 17 0-20 MM/HR Sodium Level 140 135-145 MMOL/L Potassium Level 3.8 3.6-5.0 MMOL/L Chloride Level 102 98-107 MMOL/L Carbon Dioxide Level 22 21-32 MMOL/L Anion Gap 16 H 5-14 MMOL/L Blood Urea Nitrogen 9 7-18 MG/DL Creatinine 0.74 0.60-1.30 MG/DL Estimat Glomerular Filtration Rate 90 BUN/Creatinine Ratio 12 Glucose Level 107 H 70-105 MG/DL Calcium Level 9.9 8.5-10.1 MG/DL C-Reactive Protein High Sensitivity 0.12 0.00-0.50 MG/DL Procalcitonin 0.01 <0.10 NG/ML Urine Color YELLOW Urine Clarity CLEAR Urine pH 7.0 5-9 Urine Specific [place] 1.010 L 1.016-1.022 Urine Protein NEGATIVE NEGATIVE Urine Glucose (UA) NEGATIVE NEGATIVE Urine Ketones TRACE H NEGATIVE Urine Nitrite NEGATIVE NEGATIVE Urine Bilirubin NEGATIVE NEGATIVE Urine Urobilinogen 0.2 < = 1.0 MG/DL Urine Leukocyte Esterase NEGATIVE NEGATIVE Urine RBC (Auto) NEGATIVE NEGATIVE Urine RBC RARE /HPF Urine WBC 0-2 /HPF Urine Squamous Epithelial Cells 2-5 /HPF Urine Crystals NONE /LPF Urine Bacteria TRACE /HPF Urine Casts NONE /LPF Urine Mucus SMALL H /LPF Urine Culture Indicated NO My Orders Orders - AWILDA EDWARDS Ketorolac Injection (Toradol Injection) (10/14/21 13:30) Ed Iv/Invasive Line Start (10/14/21 13:19) Lactated Ringers (Lr 1000 Ml Iv Solution (10/14/21 13:30) Cbc With Automated Diff (10/14/21 13:19) Basic Metabolic Panel (10/14/21 13:19) Hs C Reactive Protein (10/14/21 13:19) Procalcitonin (Pct) (10/14/21 13:19) Erythrocyte Sedimentation Rate (10/14/21 13:19) Ua Culture If Indicated (10/14/21 13:19) Butalbital/Apap/Caffeine Tab (Fioricet T (10/14/21 13:19) Ondansetron Injection (Zofran Injectio (10/14/21 13:30) Medications Given in ED Vital Signs/I&O 10/14/21 13:05 Temp 35.3 Pulse 83 Resp 16 B/P (MAP) 122/90 (101) Pulse Ox 100 O2 Delivery Room Air Blood Pressure Mean: 101 Progress Progress Note #1: Time: 13:32 Progress Note Neurologically intact, worsening headache and low back pain after lumbar puncture for work-up for subarachnoid hemorrhage 3 days ago. Suspect she has a post dural puncture headache. She is more comfortable laying flat. We will give her a Fioricet and Toradol and a liter of fluids check some basic labs for markers of inflammation and a white count. If these are all negative then we will talk to anesthesia about doing a blood patch. Zofran for nausea. Progress Note #2: Time: 16:[address] Rodney down to the ER applied a blood patch. The patient has been laying flat for the past hour. She says her pain is significantly improved after the pain medications. We will send her home with some hydrocodone's. After discussing the case with the patient she states that her neck is barely sore anymore her headache is a little better and her back still hurts considerably which is not unexpected after a blood patch. She says she lives in [place] and Thursday when she went home the ride was brutal on her and she would really like to stay overnight for pain management since there is no one at home to help take care of her. Departure Communication (Admissions) Time/Spoke to Admitting Phy: 17:10 Discussed the case with Dr. Magana who agrees to observe the patient overnight for intractable pain management related to a post dural headache. Impression Primary Impression: Headache, post-lumbar puncture Disposition: ADMITTED INPATIENT Condition: Stable Admissions Decision to Admit Reason: Admit from ER (General) Decision to Admit/Date: Oct 18, 2021 Time/Decision to Admit Time: 17:00 Departure-Patient Inst. Referrals: [facility] (PCP/Family) Primary Care Physician Patient Instructions: Epidural Blood Patch, Spinal Headache Add. Discharge Instructions: Drink lots of fluids. Hydrocodone 1 or 2 tablets every 4 hours as necessary to remain functional. For the rest of the day you should remain laying flat only getting up to go to the bathroom or for brief periods. Take the next 2 days off and remain around the house. Tylenol 1000 mg every 8 hours as necessary for pain. Ibuprofen 800 mg every 8 hours as necessary for pain. Topical creams such as icy hot or Biofreeze. Expect to have some pain around the site of the blood patch for the next several days. Heating pads for your neck as well as topical creams. Do not lift more than 20 pounds until 10/18/2021. All discharge instructions reviewed with patient and/or family. Voiced understanding. Scripts Ondansetron (Ondansetron Odt) 4 Mg Tab.rapdis 4 MG PO Q4H PRN for NAUSEA-1ST LINE, #30 TAB 0 Refills Prov: KARO MAGANA MD 10/16/21 Cyclobenzaprine HCl (Cyclobenzaprine HCl) 10 Mg Tablet 10 MG PO TID PRN for MUSCLE SPASMS, #30 TAB 0 Refills Prov: KARO MAGANA MD 10/16/21 Work/School Note: Work Release Form Date Seen in the Emergency Department: Oct 14, 2021 Return to Work: Oct 18, 2021 Restrictions: No Restrictions AWILDA EDWARDS Oct 14, 2021 13:29
[2021-10-14] MEDS ORDERED: KETOROLAC 30 MG/ML VIAL IVP ONE (13:30)
[2021-10-14] MEDS ORDERED: LACTATED RINGERS 1,000 ML IV ONE (13:30)
[2021-10-14] MEDS ORDERED: ONDANSETRON 4 MG/2 ML (SDV) Z0FRAN IVP ONE (13:30)
[2021-10-14 13:33] LABS: POTASSIUM 3.8 MMOL/L (3.6-5.0)
[2021-10-14 13:34] LABS: CALCIUM 9.9 MG/DL (8.5-10.1)
[2021-10-14 13:38] LABS: CREATININE SERUM 0.74 MG/DL (0.60-1.30)
[2021-10-14 13:39] LABS: BASOPHILS % (AUTO) 0 % (0-10); EOSINOPHILS % (AUTO) 1 % (0-10); HEMATOCRIT 43 % (35-52); HEMOGLOBIN 14.1 g/dL (11.5-16.0); LYMPHOCYTES # (AUTO) 2.2 10^3/uL (1.0-4.0); LYMPHOCYTES % (AUTO) 27 % (12-44); MEAN CORPUSCULAR HEMOGLOBIN 28 pg (25-34); MEAN CORPUSCULAR HGB CONC 33 g/dL (32-36); MEAN CORPUSCULAR VOLUME 85 fL (80-99); MEAN PLATELET VOLUME 9.8 fL (9.0-12.2); MONOCYTES # (AUTO) 0.4 10^3/uL (0.0-1.0); MONOCYTES % (AUTO) 4 % (0-12); NEUTROPHILS # (AUTO) 5.5 10^3/uL (1.8-7.8); NEUTROPHILS % (AUTO) 68 % (42-75); PLATELET COUNT 372 10^3/uL (130-400); WHITE BLOOD COUNT 8.1 10^3/uL (4.3-11.0)
[2021-10-14 13:45] LABS: BILIRUBIN,URINE NEGATIVE (NEGATIVE); CLARITY,URINE CLEAR; COLOR,URINE YELLOW; GLUCOSE, URINE (UA) NEGATIVE (NEGATIVE); KETONES,URINE TRACE (NEGATIVE); LEUKOCYTE ESTERASE ,URINE NEGATIVE (NEGATIVE); NITRITE,URINE NEGATIVE (NEGATIVE); PROTEIN,URINE NEGATIVE (NEGATIVE)
[2021-10-14 14:06] LABS: BACTERIA,URINE TRACE /HPF; RBC,URINE RARE /HPF; WBC,URINE 0-2 /HPF
[2021-10-14 14:11] LABS: ERYTHROCYTE SEDIMENTATION RATE 17 MM/HR (0-20)
--- NOTE | 2021-10-14 15:26 | Anesthesia-Procedure Note ---
Procedures/Interventions Procedure Start/Stop/Diagnosis Date of Procedure: Oct 14, 2021 Start Time: 14:40 Referring Physician: Dr Bright Preprocedural Diagnosis: Headache, S/P Lumbar Puncture Brief History Called to ED to evaluate patient for an epidural blood patch. She was here Thursday and had a lumbar puncture done. Since then she has had a significantly increased headache and neck pain, worse when sitting or standing. She has had a headache for the past 2 weeks or so, but it is much worse now. Stop Time: 14:55 Postprocedural Diagnosis: Same Blood Patch Blood Patch Language Line used for Danish interpretation. After a lengthy discussion of recent history and treatments, an epidural blood patch procedure was described in detail, including risks, benefits and alternatives, including partial or no relief of her headache. All questions were answered and consent was signed. Plt Count WNL. Sitting pos'n for the procedure. Sterile P/D for epidural blood patch with ChloraPrep. Sterile prep for Rt AC blood draw with ChloraPrep. After 2 mL 1% lidocaine for local at the lumbar puncture site, the epidural space was accessed using a 17 G Tuohy needle with LOR2NS technique without difficulty, located at 5 cm. Neg heme/CSF/Paresthesias. ~ 20 mL blood drawn in normal sterile procedure and injected aseptically into the epidural space. Pt tolerated the procedure well. A sterile bandage was applied to both locations. The language line was again used to speak with the patient after the procedure. She said that her headache was much improved, however her neck stiffness was still present. She also C/O some right hip pain, which I told her was most likely from the blood which was injected into the epidural space. She said she also had some chest and abdominal pain, which were present before the procedure and unchanged. All questions were answered and I told her I would let Dr Bright know about her chest, abdominal and right hip pain. She tolerated the procedure well. FERNANDA MANLEY DO Oct 14, 2021 15:26
[2021-10-14] MEDS ORDERED: ONDA4TAB11 PO (16:49)
[2021-10-14] MEDS ORDERED: ACHD5005 PO (16:49)
[2021-10-14] MEDS ORDERED: ONDANSETRON 4 MG/2 ML (SDV) Z0FRAN IV PRN (18:15)
[2021-10-14] MEDS ORDERED: ACETAMINOPHEN 325 MG TABLET PO PRN (18:15)
[2021-10-14] MEDS ORDERED: CATHETER FLUSH 10 ML SYR IV PRN (18:15)
[2021-10-14] MEDS ORDERED: fentaNYL INJ 100 MCG/2 ML AMP IV PRN (18:15)
[2021-10-14] MEDS: HYDROcodone/APAP 7.5 MG/325 MG (LORTAB, LORCET PLUS) TABLET PO PRN (19:36)
[2021-10-14] MEDS: CATHETER FLUSH 10 ML SYR IV SCH (19:36)
[2021-10-14 19:43] VITALS: BP 144/88
[2021-10-14 23:30] VITALS: BP 111/69
[2021-10-15] MEDS: KETOROLAC 15 MG/ML VIAL IV PRN ×2 (00:03→23:36)
[2021-10-15 04:15] VITALS: BP 100/64
[2021-10-15] MEDS: CATHETER FLUSH 10 ML SYR IV SCH ×3 (06:18→23:36)
[2021-10-15 07:58] VITALS: BP 110/73
[2021-10-15] MEDS: HYDROcodone/APAP 7.5 MG/325 MG (LORTAB, LORCET PLUS) TABLET PO PRN (09:12)
[2021-10-15] MEDS ORDERED: GADOTERATE 0.5 MMOL/ML (CLARISCAN) 15 ML VIAL IV ONE (12:00)
[2021-10-15 13:17] VITALS: BP 112/64
--- NOTE | 2021-10-15 13:30 | Diagnostic Imaging Report ---
PROCEDURE: MRI lumbar spine. TECHNIQUE: Multiplanar, multisequence MRI of the lumbar spine was performed without contrast. INDICATION: Severe head pain. The patient is post lumbar puncture with a blood patch. FINDINGS: The lumbar vertebral statures, alignment, and marrow signal intensity are normal. The pedicles and pars are intact. The lower thoracic cord and conus are normal. There is normal dispersal of the nerves of the cauda equina. No acute intrathecal or epidural abnormality. No paraspinal mass, hemorrhage, or fluid collection. There is no substantial lumbar spinal canal stenosis. The neural foramen and lateral recesses are widely patent. There is some mild facet arthrosis and ligamentous thickening at the L4-L5 and L5-S1 levels. No findings of a meningocele or pseudomeningocele. No fluid collection. IMPRESSION: Mild lower lumbar degenerative changes without significant stenosis. Normal alignment. No acute appearing abnormality. No findings of hemorrhage or intrathecal abnormality. Dictated by: Dictated on workstation # [id number]
[2021-10-15 16:00] VITALS: BP 106/68
--- NOTE | 2021-10-15 16:00 | Diagnostic Imaging Report ---
MRI brain with and without contrast Indication: Headache and bilateral eye pain. Lower terminate paresthesias. History of dural puncture. Comparison: CT angiogram head and neck, 10/11/2021. Technique: Multiplanar, multisequence MRI of the brain was performed with and without contrast. Findings: There is no diffusion restriction present to suggest acute ischemia. There is no MR evidence of intracranial hemorrhage. There is no intracranial mass effect demonstrated. There is no abnormal extra-axial collection. Hussein and white matter signal characteristics appear within normal limits. The ventricular system is appropriate in size and configuration. The basilar cisterns are patent. Posterior fossa is unremarkable. There is normal alignment of the craniocervical junction. Pituitary gland is unremarkable. The pineal region appears normal. Postcontrast imaging demonstrates no MR evidence of pathologic intracranial enhancement. There is a tiny incidental right frontal developmental venous anomaly. There are no convincing findings of dural enhancement to suggest intracranial hypotension. No orbital abnormality evident on this nondedicated exam. The paranasal sinuses and mastoid air cells are clear. Expected arterial and dural venous sinus flow voids are preserved. Impression: 1. No MR evidence of an acute intracranial abnormality. There is no evidence of ischemia, hemorrhage, parenchymal signal abnormality, intracranial mass effect, hydrocephalus, or pathologic intracranial enhancement. 2. No MR findings to suggest intracranial hypotension. Dictated by: Dictated on workstation # [id number]
[2021-10-15] MEDS ORDERED: PROMETHAZINE INJ 25 MG/ML (PHENERGAN) AMP IVP ONE (17:00)
[2021-10-15] MEDS ORDERED: D5 LR IV SOLUTION 1,000 ML IV SCH (17:00)
[2021-10-15] MEDS ORDERED: SUMAtriptan 6 MG/0.5 ML (IMITREX) INJ SQ ONE (17:00)
[2021-10-15] MEDS: CYCLOBENZAPRINE 10 MG (FLEXERIL) TAB PO PRN (17:46)
--- NOTE | 2021-10-15 19:08 | History & Physical ---
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 She was seen in the ER for a severe headache a couple of days ago and had normal CTA and had lumbar puncture that showed no bleeding and no infection. Afterward, she had back pain and then started to have neck pain which was new, unable to move her neck, so she came back in. In the ER, she received a blood patch which did help with her headache, and she is able to move her neck more, but still has pain. She also has pain in her low back and has had tingling in her feet and numbness in her feet to the point of feeling unsteady and having to hold on to things to walk ever since she had the LP. She notes an episode of severe headache around 4 years ago and that she was told there was blood somewhere, possibly sounds like a subarachnoid hemorrhage, but is unclear. Since that time, she admits occasional headaches, but they have previously been taken care of with tylenol or ibpurofen, and felt different in nature from this headache as well. At the onset of these current issues, she had severe bilateral posterior headache and redness in one eye and tightness/pain in both sides of her jaw. She also had pain behind both eyebrows. She did not note any eye watering or facial sweating. She did have some blurry vision when the headache was severe as well as nausea. Currently, the most troublesome symptoms are her feet numbness and leg pain as well as marked pain in her back and the back of her neck and head when she sits up. She feels like her legs are going to cramp or spasm. She notes being about 7 months . Source: marketing consultant Exam Limitations: language barrier Date seen by provider: Oct 15, 2021 Time Seen by Provider: 10:00 Attending Physician Karo Hernandez MD [facility] Consult Date of Admission Oct 14, 2021 at 17:20 Home Medications Home Medications Reviewed patient Home Medication Reconciliation performed by pharmacy medication reconciliations mobile battery technician and/or nursing. Patients Allergies have been reviewed. Allergies Coded Allergies: No Known Drug Allergies (Unverified , 05/09/15) KQY-Yrtxzu-Vbccav Hx Patient Social History Smoking Status: Never a Smoker 2nd Hand Smoke Exposure: No Alcohol Use?: No Have you traveled recently?: No Past Medical History PMHx: Denies SurgHx: Cholecystectomy Review of Systems ([facility]C) Constitutional: No fever; weakness (legs) EENTM: blurred vision (with headache, better now); No ear discharge, No hearing loss Respiratory: No short of breath Cardiovascular: No chest pain Gastrointestinal: No abdominal pain Musculoskeletal: back pain, muscle stiffness, muscle cramps, muscle weakness Skin: no symptoms reported Psychiatric/Neurological: See HPI Reviewed Test Results Reviewed Test Results Lab Laboratory Tests Test 10/14/21 13:10 10/14/21 13:39 Range/Units White Blood Count 8.1 4.3-11.0 10^3/uL Red Blood Count 4.99 3.80-5.11 10^6/uL Hemoglobin 14.1 11.5-16.0 g/dL Hematocrit 43 35-52 % Mean Corpuscular Volume 85 80-99 fL Mean Corpuscular Hemoglobin 28 25-34 pg Mean Corpuscular Hemoglobin Concent 33 32-36 g/dL Red Cell Distribution Width 16.7 H 10.0-14.5 % Platelet Count 372 130-400 10^3/uL Mean Platelet Volume 9.8 9.0-12.2 fL Immature Granulocyte % (Auto) 0 % Neutrophils (%) (Auto) 68 42-75 % Lymphocytes (%) (Auto) 27 12-44 % Monocytes (%) (Auto) 4 0-12 % Eosinophils (%) (Auto) 1 0-10 % Basophils (%) (Auto) 0 0-10 % Neutrophils # (Auto) 5.5 1.8-7.8 10^3/uL Lymphocytes # (Auto) 2.2 1.0-4.0 10^3/uL Monocytes # (Auto) 0.4 0.0-1.0 10^3/uL Eosinophils # (Auto) 0.0 0.0-0.3 10^3/uL Basophils # (Auto) 0.0 0.0-0.1 10^3/uL Immature Granulocyte # (Auto) 0.0 0.0-0.1 10^3/uL Erythrocyte Sedimentation Rate 17 0-20 MM/HR Sodium Level 140 135-145 MMOL/L Potassium Level 3.8 3.6-5.0 MMOL/L Chloride Level 102 98-107 MMOL/L Carbon Dioxide Level 22 21-32 MMOL/L Anion Gap 16 H 5-14 MMOL/L Blood Urea Nitrogen 9 7-18 MG/DL Creatinine 0.74 0.60-1.30 MG/DL Estimat Glomerular Filtration Rate 90 BUN/Creatinine Ratio 12 Glucose Level 107 H 70-105 MG/DL Calcium Level 9.9 8.5-10.1 MG/DL C-Reactive Protein High Sensitivity 0.12 0.00-0.50 MG/DL Procalcitonin 0.01 <0.10 NG/ML Urine Color YELLOW Urine Clarity CLEAR Urine pH 7.0 5-9 Urine Specific [place] 1.010 L 1.016-1.022 Urine Protein NEGATIVE NEGATIVE Urine Glucose (UA) NEGATIVE NEGATIVE Urine Ketones TRACE H NEGATIVE Urine Nitrite NEGATIVE NEGATIVE Urine Bilirubin NEGATIVE NEGATIVE Urine Urobilinogen 0.2 < = 1.0 MG/DL Urine Leukocyte Esterase NEGATIVE NEGATIVE Urine RBC (Auto) NEGATIVE NEGATIVE Urine RBC RARE /HPF Urine WBC 0-2 /HPF Urine Squamous Epithelial Cells 2-5 /HPF Urine Crystals NONE /LPF Urine Bacteria TRACE /HPF Urine Casts NONE /LPF Urine Mucus SMALL H /LPF Urine Culture Indicated NO Physical Exam-(CHC) Physical Exam Vital Signs VS - Last 72 Hours, by Label 10/14/21 10/14/21 10/14/21 10/14/21 13:05 17:54 18:37 19:35 Temp 35.3 Pulse 83 65 Resp 16 15 B/P (MAP) 122/90 (101) 116/90 Pulse Ox 100 97 O2 Delivery Room Air Room Air Room Air Room Air 10/14/21 10/14/21 10/15/21 10/15/21 19:43 23:30 04:15 07:58 Temp 36.9 36.9 36.8 37.0 Pulse 65 66 62 73 Resp 20 18 16 18 B/P (MAP) 144/88 (106) 111/69 (83) 100/64 (76) 110/73 (85) Pulse Ox 98 98 97 97 O2 Delivery Room Air Room Air Room Air Room Air 10/15/21 10/15/21 10/15/21 09:00 13:17 16:00 Temp 36.0 Pulse 74 68 Resp 20 18 B/P (MAP) 112/64 (80) 106/68 (81) Pulse Ox 97 98 O2 Delivery Room Air Room Air Room Air Capillary Refill : Less Than 3 Seconds General Appearance: WD/WN, mild distress (with movement) Eyes: Bilateral Eye PERRL, Bilateral Eye EOMI Neck: other (full side to side motion, pain with neck flexion, but able to c omplete) Respiratory: lungs clear Cardiovascular: regular rate, rhythm, no murmur Gastrointestinal: normal bowel sounds, non tender, soft Extremities: no pedal edema Neurologic/Psychiatric: 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 Marked back and neck pain with ankle dorsiflexion) Skin: normal color, warm/dry Assessment/Plan Assessment/Plan Admission Status: Observation (1) Headache, post-lumbar puncture Status: Acute Assessment & Plan: Somewhat improved after blood patch, but has some significant residual symptoms, along with neurologic manifestations in other areas, will obtain MRI brain and lumbar spine. (2) Tingling of both feet Status: Acute (3) Leg weakness, bilateral Status: Acute KARO HERNANDEZ MD Oct 15, 2021 19:08
[2021-10-15 20:00] VITALS: BP 100/57
[2021-10-15 23:42] VITALS: BP 102/62
[2021-10-16 03:58] VITALS: BP 107/58
[2021-10-16] MEDS: CATHETER FLUSH 10 ML SYR IV SCH (05:42)
[2021-10-16 07:27] VITALS: BP 105/69
[2021-10-16] MEDS: CYCLOBENZAPRINE 10 MG (FLEXERIL) TAB PO PRN (09:53)
[2021-10-16] MEDS ORDERED: CYCL10TA25 PO (11:09)
[2021-10-16] MEDS ORDERED: ONDA4TAB11 PO (11:09)
--- NOTE | 2021-10-16 11:13 | Discharge Summary ---
Discharge Summary Hospital Course Problems/Diagnosis: (1) Headache, post-lumbar puncture Status: Acute Assessment & Plan: Somewhat improved after blood patch, but has some significant residual symptoms, along with neurologic manifestations in other areas obtained MRI brain and lumbar spine which were both unremarkable. Had continued improvement and felt benefit with muscle relaxer for leg symptoms, so script was given on d/c. (2) Tingling of both feet Status: Resolved Resolution Date/Time: 10/16/21 @ 11:12 (3) Leg weakness, bilateral Status: Resolved Resolution Date/Time: 10/16/21 @ 11:12 Hospital Course Date of Admission: Oct 14, 2021 at 17:20 Admission Diagnosis : Family Physician/Provider: [facility] Date of Discharge: 10/16/21 Discharge Diagnosis: See problem list Hospital Course: See problem list Labs and Pending Lab Test: Home Meds Active Ondansetron Odt (Ondansetron) 4 Mg Tab.rapdis 4 Mg PO Q4H PRN Cyclobenzaprine HCl 10 Mg Tablet 10 Mg PO TID PRN Assessment/Pt DC Instructions Follow up with primary provider within a week of discharge. Discharge Diet: Regular Diet Activity as Tolerated: Yes Discharge Physical Examination Allergies: Coded Allergies: No Known Drug Allergies (Unverified , 05/09/15) General Appearance: No Apparent Distress, WD/WN Respiratory: Lungs Clear, Normal Breath Sounds Cardiovascular: Regular Rate, Rhythm, No Murmur Skin: Normal Color, Warm/Dry Neurologic/Psychiatric: Alert, Normal Mood/Affect; No Motor Weakness KARO MAGANA MD Oct 16, 2021 11:13
[2021-10-16] MEDS ORDERED: SIMETHICONE 80 MG (MYLICON) CHEW PO ONE (11:15)
[2021-10-16 11:29] VITALS: BP 114/77
== END 2021-10-16 14:28 | disposition home or self-care (01) ==
LOC: EDUNIT# 12:57 → ER 13:00 → 4TH 17:20
PROVIDERS: ADMIT Family Medicine; ATTEND Family Medicine
DX: G97.1 Other reaction to spinal and lumbar puncture (principal); R20.2 Paresthesia of skin; R53.1 Weakness; G43.909 Migraine, unspecified, not intractable, without status migrainosus; Z90.49 Acquired absence of other specified parts of digestive tract; Z79.899 Other long term (current) drug therapy; Z79.891 Long term (current) use of opiate analgesic
CPT/HCPCS: 36415; 70553; 72148; 80048; 81000; 84145; 85025; 85652; 86141